=== PATIENT | male | born 1985 | race Caucasian/White ===

== ENCOUNTER 2018-09-21 18:17 | Emergency (ER) | payer OTHER ==
[~2018-09-21] VITALS: Ht 175.3 cm; Wt 79.4 kg
[2018-09-21 21:05] VITALS: BP 116/72
== END 2018-09-21 21:07 | disposition short-term general hospital (02) ==
LOC: M.ERS 18:17
DX: S02.642A Fracture of ramus of left mandible, initial encounter for closed fracture (principal); S93.492A Sprain of other ligament of left ankle, initial encounter; W18.39XA Other fall on same level, initial encounter; Y92.89 Other specified places as the place of occurrence of the external cause; Y93.89 Activity, other specified; Y99.8 Other external cause status